=== PATIENT | male | born 1960 | race Caucasian/White ===

== ENCOUNTER → 2017-03-31 10:42 | Outpatient (CLI) | payer OTHER ==
[2016-04-14 08:04] VITALS: BMI 22.6
[~2017-03-31 10:42] MED LIST: CELEXA40 MG PO; HYDROCODONE-APA1 TAB PO; LOTENSIN20 MG PO; MEDROL DOSE PACK4 MG; MELOXICAM TAB 15M; NORVASC10 MG PO; OMEPRAZOLE CAP 20M; TRIAMTERENE-HCT1 TA1 PO; TYLENOL W/CODEI1 TAB PO
== END | disposition home or self-care (01) ==
LOC: D.RT 10:42
DX: Z02.71 Encounter for disability determination (principal)